=== PATIENT | female | born 1970 | race Caucasian/White ===

== ENCOUNTER 2017-07-05 10:29 | Observation (INO) | payer OTHER ==
--- NOTE | 2017-07-05 09:44 | PDHPUP ---
History & Physical Update H&P update statement: This history and physical update is based on an assessment of the patient which was completed after admission or registration (within 24 hours), but prior to the surgery/procedure. H&P update: H&P reviewed & patient examined, no change in patient's condition since H&P completed
[~2017-07-05 10:29] MED LIST: ceFAZolin 2 GM/DEXTROSE 100 ML IV ONE
[2017-07-05] MEDS ORDERED: PHENAZOPYRIDINE HCL 200 MG TAB PO ONE ×2 (12:02→13:00)
[2017-07-05] MEDS ORDERED: ceFAZolin 2 GM/DEXTROSE 100 ML IV ONE (12:02)
[2017-07-05] MEDS ORDERED: BUPIVACAINE/EPI 0.5% 30 ML SDV ONE (12:19)
[2017-07-05] MEDS ORDERED: LR 1,000 ML IV ONE (12:20)
[2017-07-05] MEDS ORDERED: MIDAZOLAM 2 MG/2 ML VIAL IVP ONE (13:13)
--- NOTE | 2017-07-05 13:13 | PDANEPAE ---
ANE History of Present Illness 46 yo for laparscopic hysterectomy ANE Past Medical History - Cardiovascular History Hx Hypertension: No Hx Arrhythmias: No Hx Chest Pain: No Hx Coronary Artery / Peripheral Vascular Disease: No Hx CHF / Valvular Disease: No Hx Palpitations: No - Pulmonary History Hx COPD: No Hx Asthma/Reactive Airway Disease: No Hx Recent Upper Respiratory Infection: No Hx Oxygen in Use at Home: No Hx Sleep Apnea: No Sleep Apnea Screening Result - Last Documented: Negative - Neurologic History Hx Cerebrovascular Accident: No Hx Seizures: No Hx Dementia: No - Endocrine History Hx Diabetes: No - Renal History Hx Renal Disorders: No - Liver History Hx Hepatic Disorders: No - Neurological & Psychiatric Hx Hx Neurological and Psychiatric Disorders: No - Cancer History Hx Cancer: No - Congenital Disorder History Hx Congenital Disorders: No - GI History Hx Gastrointestinal Disorders: No - Other Health History Other Health History: NONE - Chronic Pain History Chronic Pain: No - Surgical History Prior Surgeries: NONE ANE Review of Systems Review of Systems: - Exercise capacity METS (RN): 4 METS ANE Patient History - Allergies Allergies/Adverse Reactions: No Known Drug Allergies Allergy (Verified 06/27/17 09:50) - Home Medications Home medications: home medication list seen and reviewed Home Medications: NK [No Known Home Meds] 06/27/17 [Last Taken Unknown] - NPO status NPO Status: no food or drink >8 hours NPO Since - Liquids (Date): 07/05/17 NPO Since - Liquids (Time): 08:30 NPO Since - Solids (Date): 07/04/17 NPO Since - Solids (Time): 21:00 - Anes Hx Anes Hx: no prior problems - Smoking Hx Smoking Status: Never smoked - Family Anes Hx Family Hx Anesthesia Complications: NONE ANE Labs/Vital Signs - Vital Signs Blood Pressure: 115/73 Heart Rate: 71 Respiratory Rate: 18 O2 Sat (%): 97 Height: 5 ft 4 in Weight: 58.513 kg ANE Physical Exam - Airway Neck exam: FROM Mallampati Score: Class 2 Mouth exam: normal dental/mouth exam - Pulmonary Pulmonary: no respiratory distress - Cardiovascular Cardiovascular: regular rate and rhythym - ASA Status ASA Status: I ANE Anesthesia Plan Anesthesia Plan: general endotracheal anesthesia
[2017-07-05] MEDS ORDERED: fentaNYL 100 MCG/2 ML INJ ONE ×3 (13:28→15:28)
[2017-07-05] MEDS ORDERED: PROPOFOL/EMULSION 500 MG/50 ML BOTTLE IV ONE (13:29)
[2017-07-05] MEDS ORDERED: HYDROmorphONE/DILAUDID 2 MG/ML INJ ONE (14:45)
[2017-07-05] MEDS ORDERED: PROMETHAZINE HCL 25 MG/ML INJ IVP PRN (15:19)
[2017-07-05] MEDS ORDERED: fentaNYL 100 MCG/2 ML INJ IVP PRN (15:19)
[2017-07-05] MEDS ORDERED: ONDANSETRON 4 MG/2 ML VIAL IVP PRN ×2 (15:19→15:39)
[2017-07-05] MEDS ORDERED: HYDROmorphONE/DILAUDID 1 MG/ML INJ IVP PRN ×2 (15:19→15:39)
[2017-07-05] MEDS ORDERED: NALOXONE HCL 0.4 MG/ML INJ IVP PRN (15:19)
[2017-07-05] MEDS ORDERED: KETOROLAC 30 MG/1 ML SDV ONE (15:24)
[2017-07-05] MEDS ORDERED: SUGAMMADEX SODIUM 200 MG/2 ML VIAL IVP ONE (15:24)
[2017-07-05] MEDS ORDERED: DIAZEPAM 10 MG/2 ML SYR IVP PRN (15:39)
--- NOTE | 2017-07-05 15:45 | POSTANESTH ---
Post Anesthetic Evaluation Cardiovascular Status: Normal, Stable Respiratory Status: Tx Decrease in SpO2 Level of Consciousness/Mental Status: Can Participate in Eval Pain Control: Adequate, Prn Tx Ordered Nausea/Vomiting Control: Adequate, Prn Tx Ordered Complications Possibly Related to Anesthesia: None Noted
[2017-07-05] MEDS ORDERED: LR 1,000 ML IV SCH (16:00)
[2017-07-05] MEDS: HYDROCODONE/APAP 5/325 TAB PO PRN (19:58)
[2017-07-05] MEDS: DOCUSATE SODIUM 100 MG CAP PO SCH (21:37)
[2017-07-05] MEDS: KETOROLAC 30 MG/1 ML SDV IVP PRN (21:38)
[2017-07-05] MEDS: SIMETHICONE 80 MG TAB CHEW PO SCH (21:38)
--- NOTE | 2017-07-06 02:38 | GOP ---
[f rep st] OPERATIVE REPORT DATE OF OPERATION: 07/05/2017 SURGEON: Gómez Szymanski MD SHANK MAKER: Sugar Lopez CFA ANESTHESIA: General. PREOPERATIVE DIAGNOSIS: 1. Menorrhagia. 2. Uterine fibroids. 3. Dysmenorrhea. POSTOPERATIVE DIAGNOSIS: 1. Menorrhagia. 2. Uterine fibroids. 3. Dysmenorrhea. 4. Vaginal vault prolapse. 5. Endometriosis. PROCEDURE PERFORMED: 1. Robotic-assisted total laparoscopic hysterectomy, bilateral salpingectomy. 2. Bilateral uterosacral ligament colpopexy. 3. Left ureterolysis. 4. Excision of endometriosis. 5. Cystoscopy. FINDINGS: 1. A 748 g fibroid uterus. 2. Endometriosis of posterior cul-de-sac and right pelvic sidewall. SPECIMENS: Uterus, fibroids, bilateral tubes. ESTIMATED BLOOD LOSS: Less than 50 mL. DESCRIPTION OF PROCEDURE: The patient was taken to the operating room where she was identified. Gen eral anesthesia was administered and found to be adequate. She was placed in the lithotomy position, and prepared and draped in normal sterile fashion. A VCare uterine manipulator was placed into the endometrial cavity and sutured to the cervix. A Izquierdo catheter was then placed. A 1 cm transverse incision was made approximately 4 cm above the umbilicus. The Veress needle with C O2 gas flowing was advanced into the peritoneal cavity. The abdomen was then insufflated with carbon dioxide gas. The 12 mm trocar, followed by the laparoscope, was then inserted. The upper abdomen w as unremarkable. An enlarged fibroid uterus was seen filling up the pelvis. Two lateral ports were placed on the right and 1 on the left under direct visualization. She was then replaced in Trendelen jose position, and the da Janice robot docked on the left side. The instruments were then brought int o the abdominal cavity under direct visualization. The left fallopian tube was along the mesosalpinx. The utero-ovarian ligament, followed by the round ligament were then cauterized and transected. The patient had broad ligament fibroids ext ending laterally into the pelvis, compressing the left ureter. A left ureterolysis was required give n the broad ligament fibroids, and the location over the left uterine artery would require ligation. As a result, the left ureter was identified. The peritoneum at the pelvic brim was incised. The ur eter was gently dissected free from the pelvic brim all the way down to the bladder. Once this was l ateralized, the uterine vasculature above and below the left ureter was coagulated and transected. Santi quintero anterior leaf of the broad ligament was then incised over the cervix. The bladder was gently diss ected off the cervix and upper vagina. A similar procedure was performed on the patient's right side . The large fibroid was from the uterus to aid in removal through the vagina. A circumfer ential colpotomy incision was then made with the hot valeria. I then scrubbed back into the case to r emove the specimen through the vagina. This required some vaginal morcellation. The vaginal cuff was then closed with a running suture of 0 V-Loc 180. A bilateral uterosacral ligam ent colpopexy was performed by attaching the lateral aspects of the vaginal cuff to the ipsilateral u terosacral ligaments near their insertion into the coccygeal-sacrospinous ligament complexes. The pe lvis was irrigated with sterile saline, and hemostasis was present. The lesion of endometriosis in santi quintero posterior cul-de-sac was excised and placed in the vagina prior to closure. The fascia was then c losed with 0 Vicryl, skin with 4-0 Monocryl and surgical adhesive. Cystoscopy was then performed. Both ureters had vigorous jets of urine. There was no evidence of bl adder nor urethral injury seen. No suture was seen within the bladder nor urethra. No obvious patho logy was seen. The patient had 2 small abrasions in the vagina which were sutured. Vaginal packing was then placed. Anesthesia was reversed, and the patient taken to PACU awake in stable condition. COMPLICATIONS: None. DISPOSITION: Patient stable to PACU. /[id number]/MODL
[2017-07-06] MEDS: KETOROLAC 30 MG/1 ML SDV IVP PRN ×2 (03:36→09:36)
[2017-07-06] MEDS: SIMETHICONE 80 MG TAB CHEW PO SCH ×2 (03:37→09:35)
[2017-07-06] MEDS: HYDROCODONE/APAP 5/325 TAB PO PRN ×2 (06:37→10:18)
[2017-07-06 06:38] LABS: HEMOGLOBIN 12.6 g/dL (12.6-16.3)
[2017-07-06 07:58] VITALS: BP 93/59; PULSE 57; RESP 16; TEMP 97.9; O2SAT 95
[2017-07-06] MEDS: DOCUSATE SODIUM 100 MG CAP PO SCH (09:35)
== END 2017-07-06 11:00 | disposition home or self-care (01) ==
LOC: F3E 11:20 → FOB 17:12
PROVIDERS: ADMIT Obstetrics & Gynecology; ATTEND Obstetrics & Gynecology
DX: D25.1 Intramural leiomyoma of uterus (principal); R10.2 Pelvic and perineal pain; R35.0 Frequency of micturition; N92.0 Excessive and frequent menstruation with regular cycle
CPT/HCPCS: 52351; 57283; 58573; G0378; J0690; J1170; J1885; J2250; J2704; J3010